=== PATIENT | male | born 1960 | race Asian ===

== ENCOUNTER 2017-12-12 15:20 | Emergency (ER) | payer OTHER ==
[~2017-12-12] VITALS: Ht 190.5 cm; Wt 117.9 kg
[~2017-12-12 15:20] MED LIST: BENZTROPINE2 MG PO; DIVA500T2 PO; HALO50IN4 IM; LISI20TA24 PO
[2017-12-12 16:57] VITALS: BP 133/85; TEMP 98.2
[2017-12-12 17:50] LABS: PLATELET COUNT 241 K/uL (142-355)
[2017-12-12 18:01] LABS: POTASSIUM 3.8 mmol/L (3.6-5.2); SODIUM 151 mmol/L (136-145)
== END 2017-12-12 18:49 | disposition home or self-care (01) ==
LOC: ED 15:20
DX: F14.10 Cocaine abuse, uncomplicated (principal)
CPT/HCPCS: 36415; 80053; 80307; 80320; 80329; 81000; 85027; 87088; 93005; 99283

== ENCOUNTER 2020-06-03 00:15 | Emergency (ER) | payer OTHER ==
[~2020-06-03] VITALS: Ht 190.5 cm; Wt 113.4 kg
[2020-06-03 00:15] VITALS: BP 167/95; TEMP 98.8
== END 2020-06-03 01:11 | disposition home or self-care (01) ==
LOC: ED 00:24
DX: M71.22 Synovial cyst of popliteal space [Baker], left knee (principal)
CPT/HCPCS: 99282

== ENCOUNTER 2022-08-15 20:16 | Emergency (ER) | payer OTHER ==
[~2022-08-15] VITALS: Ht 190.5 cm; Wt 105.7 kg
[2022-08-15 20:30] VITALS: TEMP 98
[2022-08-15 21:55] VITALS: BP 138/83
== END 2022-08-15 21:55 | disposition home or self-care (01) ==
LOC: ED 20:16
PROC: 2W3RX1Z Immobilization of Left Lower Leg using Splint (ICD-10-PCS; principal; 2022-08-15)
DX: S90.32XA Contusion of left foot, initial encounter (principal); S96.812A Strain of other specified muscles and tendons at ankle and foot level, left foot, initial encounter; V03.00XA Pedestrian on foot injured in collision with car, pick-up truck or van in nontraffic accident, initial encounter; Y92.89 Other specified places as the place of occurrence of the external cause
CPT/HCPCS: 99283

== ENCOUNTER 2022-11-14 21:39 | Emergency (ER) | payer OTHER ==
[~2022-11-14] VITALS: Ht 190.5 cm; Wt 82.1 kg
[2022-11-14 21:45] VITALS: TEMP 97.6
[2022-11-14 22:41] LABS: PLATELET COUNT 258 K/uL (142-355)
[2022-11-15 08:20] VITALS: BP 164/82
[2022-11-15] MEDS ORDERED: AMLODIPINE BESYLATE PO (17:17)
[2022-11-15] MEDS ORDERED: BENZTROPINE2 MG PO (17:17)
[2022-11-15] MEDS ORDERED: LISI10TA11 PO (17:17)
[2022-11-30] MEDS ORDERED: NORVASC 5MG TAB PO (09:31)
[2022-11-30] MEDS ORDERED: CONGENTIN 1MG TAB PO (09:31)
[2022-11-30] MEDS ORDERED: HALO5TAB10 PO (09:31)
[2022-11-30] MEDS ORDERED: LISI10TA11 PO (09:31)
[2022-11-30] MEDS ORDERED: MEMA10TA2 PO (09:32)
[2022-11-30] MEDS ORDERED: MAGNSUS68 PO (09:32)
== END 2022-11-15 15:45 | disposition other institution (70) ==
LOC: ED 21:39
PROVIDERS: Family Medicine
DX: F10.129 Alcohol abuse with intoxication, unspecified (principal); F19.10 Other psychoactive substance abuse, uncomplicated; F29 Unspecified psychosis not due to a substance or known physiological condition; R45.850 Homicidal ideations; R45.851 Suicidal ideations; F20.9 Schizophrenia, unspecified
CPT/HCPCS: 36415; 80053; 84132; 85027; 87635; 93005; 99285; U0003